=== PATIENT | female | born 1990 | race Caucasian/White ===

== ENCOUNTER → 2019-12-04 | Outpatient (REF) | payer OTHER, SELFPAY ==
[2019-12-04 14:10] LABS: APPEARANCE, URINE CLOUDY (CLEAR); BACTERIA, URINE AUTO NEGATIVE (NEGATIVE); BILIRUBIN, URINE AUTO NEGATIVE (NEGATIVE); BLOOD, URINE BLOOD 2+ (NEGATIVE); COLOR, URINE AMBER (YELLOW); GLUCOSE, URINE (UA) AUTO NEGATIVE (NEGATIVE); KETONE, URINE AUTO 1+ mg/dL (NEGATIVE); LEUKOCYTE ESTERASE, URINE AUTO 3+ (NEGATIVE); MUCUS, URINE SMALL (NEGATIVE); NITRITE, URINE AUTO NEGATIVE (NEGATIVE); PROTEIN, URINE AUTO 2+ mg/dL (NEGATIVE); RBC, URINE AUTO 34 /HPF (0-3); SPECIFIC GRAVITY URINE AUTO 1.018 (1.002-1.035); SQUAMOUS EPITHELIAL CELL UR AU 0 /HPF (0-6); UROBILINOGEN, URINE AUTO 0.2 mg/dL (0.0-2.0); WBC, URINE AUTO TNTC /HPF (0-3)
== END ==
LOC: M LAB REF 11:30
PROVIDERS: ATTEND Physician Assistant
DX: N39.0 Urinary tract infection, site not specified (principal)

== ENCOUNTER → 2022-12-14 | Outpatient (CLI) | payer BC ==
[2022-12-14 13:56] LABS: HEMATOCRIT 38.8 % (36.0-47.0); HEMOGLOBIN 13.4 g/dl (12.0-15.5); MEAN CORPUSCULAR HEMOGLOBIN 31.3 pg (27.0-33.0); MEAN CORPUSCULAR HGB CONC 34.5 g/dl (32.0-36.5); MEAN CORPUSCULAR VOLUME 90.7 fl (80.0-96.0); PLATELET COUNT, AUTOMATED 237 10^3/uL (150-450); RED BLOOD COUNT 4.28 10^6/uL (4.00-5.40); WHITE BLOOD COUNT 6.6 10^3/uL (4.0-10.0)
[2022-12-14 14:54] LABS: HIV 1&2 SCREEN NEGATIVE (NEGATIVE)
[2022-12-14 15:02] LABS: HEPATITIS C VIRUS ABY INDEX 0.07 INDEX (<0.8)
[2022-12-14 15:40] LABS: GC DNA AMPLIFICATION NEGATIVE (NEGATIVE)
== END ==
LOC: M PLALAB 10:42
PROVIDERS: ATTEND Advanced Practice Midwife
DX: Z36.9 Encounter for antenatal screening, unspecified (principal)

== ENCOUNTER → 2023-02-08 | Outpatient (CLI) | payer BC | LOC: M WHC 07:59 | PROVIDERS: ATTEND Advanced Practice Midwife | DX: Z34.02 Encounter for supervision of normal first pregnancy, second trimester (principal); Z3A.18 18 weeks gestation of pregnancy ==

== ENCOUNTER → 2023-02-28 | Outpatient (CLI) | payer BC | LOC: M RAD 09:50 | PROVIDERS: ATTEND Specialist | DX: Z34.92 Encounter for supervision of normal pregnancy, unspecified, second trimester (principal); Z3A.20 20 weeks gestation of pregnancy ==

== ENCOUNTER → 2023-03-10 | Outpatient (REF) | payer BC ==
[~2023-03-10] MED LIST: ACET-683 PO; AMOX500C PO
== END ==
LOC: M LAB REF 16:11
PROVIDERS: ATTEND Registered Nurse
DX: N30.01 Acute cystitis with hematuria (principal)

== ENCOUNTER 2023-03-11 13:48 | Inpatient (IN) | payer BC ==
[~2023-03-11] VITALS: Ht 162.6 cm; Wt 68.6 kg
[2023-03-11 15:03] LABS: BASO % 0.2 % (0.0-1.0); EOS % 0.2 % (0.0-3.0); HEMATOCRIT 35.8 % (36.0-47.0); HEMOGLOBIN 12.3 g/dl (12.0-15.5); MEAN CORPUSCULAR HEMOGLOBIN 31.8 pg (27.0-33.0); MEAN CORPUSCULAR HGB CONC 34.4 g/dl (32.0-36.5); MEAN CORPUSCULAR VOLUME 92.5 fl (80.0-96.0); MONO # 0.7 10^3/uL (0.0-0.8); MONO % 6.5 % (2.0-8.0); NEUTROPHILS # 8.5 10^3/uL (1.5-8.5); NEUTROPHILS % 82.7 % (36.0-66.0); PLATELET COUNT, AUTOMATED 205 10^3/uL (150-450); RED BLOOD COUNT 3.87 10^6/uL (4.00-5.40); WHITE BLOOD COUNT 10.3 10^3/uL (4.0-10.0)
[2023-03-11 15:31] LABS: LIPASE 32 U/L (12-53)
[2023-03-11 15:33] LABS: ALBUMIN 2.7 G/DL (3.2-5.2); ALKALINE PHOSPHATASE 73 U/L (46-116); ALT/SGPT 39 U/L (7.0-40); AST/SGOT 30 U/L (<34); BILIRUBIN,DIRECT < 0.1 MG/DL (<0.4); BILIRUBIN,TOTAL 0.3 MG/DL (0.3-1.2); TOTAL PROTEIN 6.2 G/DL (5.7-8.2)
[2023-03-11] MEDS ORDERED: ACETAMINOPHEN TAB 650MG DOSE (2X325MG) PO ONE (16:05)
[2023-03-11 16:50] LABS: RSV AMPLIFICATION NEGATIVE (NEGATIVE)
[2023-03-11] MEDS ORDERED: NS 1,000 ML IV ONE (17:45)
[2023-03-11] MEDS ORDERED: AMOX500C PO (18:14)
[2023-03-11] MEDS ORDERED: ACET-683 PO (18:15)
[2023-03-11] MEDS ORDERED: HOME MED LIST COMPLETE! XX SCH (18:20)
[2023-03-11] MEDS ORDERED: PERCOCET 5MG/325MG TAB PO PRN (19:10)
[2023-03-11 20:00] VITALS: BP 122/67; TEMP 98.1; O2SAT 99
[2023-03-11] MEDS ORDERED: KETOROLAC 30 MG/ML 1ML VIAL IV ONE (20:00)
[2023-03-11] MEDS ORDERED: cefTRIAXone SOD 1 GM in D5W MINI-BAG PLUS 50 ML IV SCH (20:00)
[2023-03-11] MEDS: DOCUSATE SODIUM 100MG CAPSULE PO SCH (20:20)
[2023-03-11] MEDS: LR 1,000 ML IV SCH (23:46)
[2023-03-12] VITALS: BP 107/53; TEMP 97.8; O2SAT 97
[2023-03-12 04:00] VITALS: BP 103/59; TEMP 98.7; O2SAT 100
[2023-03-12 06:37] LABS: HEMATOCRIT 30.6 % (36.0-47.0); HEMOGLOBIN 10.6 g/dl (12.0-15.5); MEAN CORPUSCULAR HEMOGLOBIN 31.8 pg (27.0-33.0); MEAN CORPUSCULAR HGB CONC 34.6 g/dl (32.0-36.5); MEAN CORPUSCULAR VOLUME 91.9 fl (80.0-96.0); PLATELET COUNT, AUTOMATED 166 10^3/uL (150-450); RED BLOOD COUNT 3.33 10^6/uL (4.00-5.40); WHITE BLOOD COUNT 8.7 10^3/uL (4.0-10.0)
[2023-03-12 07:08] LABS: ALBUMIN 2.1 G/DL (3.2-5.2); ALKALINE PHOSPHATASE 62 U/L (46-116); ALT/SGPT 31 U/L (7.0-40); AST/SGOT 23 U/L (<34); BILIRUBIN,TOTAL 0.2 MG/DL (0.3-1.2); BLOOD UREA NITROGEN 6 MG/DL (9-23); CALCIUM LEVEL 8.1 MG/DL (8.5-10.1); CARBON DIOXIDE LEVEL 22 MMOL/L (20-31); CHLORIDE LEVEL 108 MMOL/L (98-107); CREATININE FOR GFR 0.48 MG/DL (0.55-1.30); GLOMERULAR FILTRATION RATE > 60.0 (>60); GLUCOSE, FASTING 92 MG/DL (60-100); SODIUM LEVEL 137 MMOL/L (136-145); TOTAL PROTEIN 5.2 G/DL (5.7-8.2)
[2023-03-12] MEDS: LR 1,000 ML IV SCH (07:13)
[2023-03-12] MEDS: DOCUSATE SODIUM 100MG CAPSULE PO SCH (07:43)
[2023-03-12 08:00] VITALS: BP 110/61; TEMP 97.9; O2SAT 98
[2023-03-12 12:00] VITALS: BP 107/71; TEMP 97.5; O2SAT 100
[2023-03-12] MEDS ORDERED: cefTRIAXone SOD 1 GM in D5W MINI-BAG PLUS 50 ML IV ONE (13:30)
== END 2023-03-12 15:19 | disposition home or self-care (01) | DRG 566 ==
LOC: M ED 13:48 → M ED INP 18:56 → ENRESERV 19:12 → M PED 19:50
PROVIDERS: ADMIT Specialist; ATTEND Specialist
DX: O23.02 Infections of kidney in pregnancy, second trimester (principal); Z3A.22 22 weeks gestation of pregnancy; N10 Acute pyelonephritis

== ENCOUNTER → 2023-04-14 | Outpatient (CLI) | payer BC ==
[2023-04-14 12:01] LABS: HEMATOCRIT 35.9 % (36.0-47.0); HEMOGLOBIN 11.9 g/dl (12.0-15.5); MEAN CORPUSCULAR HEMOGLOBIN 31.6 pg (27.0-33.0); MEAN CORPUSCULAR HGB CONC 33.1 g/dl (32.0-36.5); MEAN CORPUSCULAR VOLUME 95.5 fl (80.0-96.0); PLATELET COUNT, AUTOMATED 222 10^3/uL (150-450); RED BLOOD COUNT 3.76 10^6/uL (4.00-5.40); WHITE BLOOD COUNT 9.4 10^3/uL (4.0-10.0)
[2023-04-14 13:29] LABS: GC DNA AMPLIFICATION NEGATIVE (NEGATIVE)
== END ==
LOC: M PLALAB 07:29
PROVIDERS: ATTEND Obstetrics & Gynecology
DX: Z34.02 Encounter for supervision of normal first pregnancy, second trimester (principal)

== ENCOUNTER → 2023-06-14 | Outpatient (REF) | payer BC | LOC: M SFHCWAGY 10:30 | PROVIDERS: ATTEND Obstetrics & Gynecology | DX: Z36.89 Encounter for other specified antenatal screening (principal); Z3A.36 36 weeks gestation of pregnancy ==

== ENCOUNTER 2023-07-11 00:58 | Inpatient (IN) | payer BC ==
[~2023-07-11] VITALS: Ht 162.6 cm; Wt 82.4 kg
[2023-07-11] VITALS (40 sets, daily range): BP systolic 84–131; BP diastolic 46–83; O2SAT 97–98
[2023-07-11] MEDS ORDERED: HOME MED LIST COMPLETE! XX SCH (01:30)
[2023-07-11] MEDS ORDERED: PRENTAB9 PO (01:30)
[2023-07-11] MEDS ORDERED: METHYLERGONOVINE MALEATE 0.2MG/ML 1ML VIAL IM PRN (01:35)
[2023-07-11] MEDS ORDERED: LIDOCAINE 1% MDV 20ML VIAL INFIL PRN (01:35)
[2023-07-11] MEDS ORDERED: OXYTOCIN INJ 10UNITS/ML 1ML VIAL IM PRN (01:35)
[2023-07-11] MEDS ORDERED: CARBOPROST TROMETHAMINE 250 MCG/ML AMP IM PRN (01:35)
[2023-07-11] MEDS ORDERED: TRANEXAMIC ACID INJection 1,000 MG in NS 100 ML IV PRN (01:35)
[2023-07-11 02:11] LABS: HEMATOCRIT 39.2 % (36.0-47.0); HEMOGLOBIN 13.4 g/dl (12.0-15.5); MEAN CORPUSCULAR HEMOGLOBIN 31.6 pg (27.0-33.0); MEAN CORPUSCULAR HGB CONC 34.2 g/dl (32.0-36.5); MEAN CORPUSCULAR VOLUME 92.5 fl (80.0-96.0); PLATELET COUNT, AUTOMATED 242 10^3/uL (150-450); RED BLOOD COUNT 4.24 10^6/uL (4.00-5.40); WHITE BLOOD COUNT 11.6 10^3/uL (4.0-10.0)
[2023-07-11] MEDS ORDERED: EPIDURAL/PCA KEYS XX PRN (02:30)
[2023-07-11] MEDS ORDERED: diphenhydrAMINE 50MG/ML VIAL IV PRN (02:30)
[2023-07-11] MEDS ORDERED: LR 500 ML IV PRN (02:30)
[2023-07-11] MEDS ORDERED: NALOXONE INJ 0.4MG/1ML VIAL IV PRN (02:30)
[2023-07-11] MEDS ORDERED: ONDANSETRON 4MG 2ML VIAL IV PRN (02:30)
[2023-07-11] MEDS: FENTANYL/ROPIVACAINE/NACL BAG 100 ML EPIDURAL SCH (04:15)
[2023-07-11] MEDS ORDERED: OXYTOCIN DRIP 30 UNITS in IV 1 EA IV SCH (04:25)
[2023-07-11] MEDS: LACTATED RINGER'S 1000 ML IV STA (04:36)
[2023-07-11] MEDS: LR 1,000 ML IV SCH (04:37)
[2023-07-11] MEDS: ePHEDrine SULFATE 25 MG/5 ML(5MG/ML) SYRINGE IVP PRN (04:39)
[2023-07-11 04:41] LABS: HEPATITIS C VIRUS ABY INDEX < 0.02 INDEX (<0.8)
[2023-07-11] MEDS ORDERED: ePHEDrine SULFATE 25 MG/5 ML(5MG/ML) SYRINGE IVP ONE (06:25)
[2023-07-11] MEDS: OXYTOCIN DRIP 30 UNITS in IV 1 EA IV PRN (14:19)
[2023-07-11 14:21] LABS: CORD GAS ABE V -4.7; CORD GAS HCO3 V 19.8 MMOL/L; CORD GAS O2 SAT V 45.1 %; CORD GAS PCO2 V 35.5 mmHg; CORD GAS PH V 7.364 UNITS; CORD GAS PO2 V 18.7 mmHg; CORD GAS SBC V 19.3 MMOL/L; CORD GAS TCO2 V 20.9 MMOL/L
[2023-07-11 14:23] LABS: CORD GAS ABE A -5.9; CORD GAS HCO3 A 22.5 MMOL/L; CORD GAS O2 SAT A 23.6 %; CORD GAS PCO2 A 54.1 mmHg; CORD GAS PH A 7.236 UNITS; CORD GAS PO2 A 14.6 mmHg; CORD GAS SBC A 17.8 MMOL/L; CORD GAS TCO2 A 24.1 MMOL/L
[2023-07-11] MEDS ORDERED: DIBUCAINE 1% OINTMENT 30GM TOP PRN (14:30)
[2023-07-11] MEDS ORDERED: CALCIUM CARBONATE 500 MG CHEW U/D PO PRN (14:30)
[2023-07-11] MEDS ORDERED: DOCUSATE SODIUM 100MG CAPSULE PO PRN (14:30)
[2023-07-11] MEDS ORDERED: ANUSOL HC CREAM 30GM TOP PRN (14:30)
[2023-07-11] MEDS: IBUPROFEN 800 MG TAB PO PRN (16:50)
[2023-07-11] MEDS: ACETAMINOPHEN 500 MG TAB PO PRN (20:54)
[2023-07-12 05:55] VITALS: BP 101/60; O2SAT 98
[2023-07-12] MEDS: PRENATAL VITAMINS CHEWABLE TABLET PO SCH (08:23)
[2023-07-12] MEDS: RHO(D) IMMUNE GLOBULIN/MALTOSE 500MCG(2500IU)/2.2ML VIAL (WINRHO) IM SCH (14:34)
[2023-07-12 17:50] VITALS: BP 110/70; O2SAT 100
[2023-07-13 06:00] VITALS: BP 102/57; O2SAT 97
[2023-07-13] MEDS: MEASLES,MUMPS,RUBELLA VACCINE INJ (MMR-II) SC.IMMUN ONE (07:21)
[2023-07-13] MEDS ORDERED: ACET-683 PO (12:26)
[2023-07-13] MEDS ORDERED: IBUP80TA PO (12:26)
[2023-07-13] MEDS ORDERED: COLA100C5 PO (12:26)
== END 2023-07-13 13:54 | disposition home or self-care (01) | DRG 560 ==
LOC: M LDO 00:58 → M LDI 01:35 → M OBS 15:44
PROVIDERS: ADMIT Advanced Practice Midwife; ATTEND Advanced Practice Midwife
PROC: 10E0XZZ Delivery of Products of Conception, External Approach (ICD-10-PCS; principal; 2023-07-11)
PROC: 0KQM0ZZ Repair Perineum Muscle, Open Approach (ICD-10-PCS; 2023-07-11)
DX: O69.82X0 Labor and delivery complicated by other cord entanglement, without compression, not applicable or unspecified (principal); O70.1 Second degree perineal laceration during delivery; Z37.0 Single live birth; Z3A.39 39 weeks gestation of pregnancy

== ENCOUNTER → 2023-12-18 | Outpatient (REF) | payer BC ==
[~2023-12-18] MED LIST changes: +COLA100C5 PO; +IBUP80TA PO; +PRENTAB9 PO
== END ==
LOC: M SFHCWAGY 12:17
PROVIDERS: ATTEND Nurse Practitioner Family
DX: N73.9 Female pelvic inflammatory disease, unspecified (principal)

== ENCOUNTER 2024-01-05 11:07 | Outpatient (RCR) | payer BC | END 2024-01-13 | LOC: M PT 11:07 | PROVIDERS: ATTEND Nurse Practitioner Family | DX: N94.10 Unspecified dyspareunia (principal) ==

== ENCOUNTER → 2024-12-24 | Outpatient (REF) | payer OTHER, BC ==
[2024-12-26 14:23] LABS: HPV APTIMA Not Detected (Not Detected)
== END ==
LOC: M SFHCWAGY 13:12
PROVIDERS: ATTEND Nurse Practitioner Family
DX: Z12.4 Encounter for screening for malignant neoplasm of cervix (principal)
CPT/HCPCS: 87624; G0123